=== PATIENT | male | born 1950 | race Caucasian/White ===

== ENCOUNTER → 2024-04-03 08:59 | Outpatient (REF) | payer MEDICARE, OTHER, SELFPAY ==
[2024-04-03 10:28] LABS: % Basophils 0.7 % (0-2); % Immature Granulocytes 0.6 % (0-0.5); % Lymphocytes 23.9 % (20.5-51.1); % Monocytes 8.1 % (1.7-9.3); % Neutrophils 62.7 % (42.2-75.2); Absolute Basophils 0.1 10^3/uL (0-0.2); Absolute Eosinophils 0.3 10^3/uL (0-0.7); Absolute Lymphocytes 1.7 10^3/uL (1.2-3.4); Absolute Monocytes 0.6 10^3/uL (0.1-0.6); Absolute Neutrophils 4.4 10^3/uL (1.4-6.5); Hematocrit 41.8 % (39.0-52.0); Hemoglobin 13.1 g/dL (13.0-18.0); Mean Corp Hgb Conc. 31.3 g/dL (33.0-37.0); Mean Corpuscular Volume 92.7 fL (80.0-94.0); Mean Platelet Volume 8.9 fL (7.4-10.4); Nucleated Red Blood Cells % 0 % (-); Platelet Count 304 10^3/uL (130-400); Red Blood Cell Count 4.51 10^6/uL (4.70-6.10); Red Cell Dist. Width 13.7 % (11.5-14.5)
[2024-04-03 11:02] LABS: ALT (SGPT) 27 U/L (0-50); AST (SGOT) 30 U/L (17-59); Albumin 4.3 g/dl (3.5-5.0); Alkaline Phosphatase 47 U/L (38-126); Blood Urea Nitrogen 30 mg/dl (9-20); Calcium 10.4 mg/dl (8.4-10.2); Carbon Dioxide 24 mmol/L (22-30); Chloride 113 mmol/L (98-107); Glucose 83 mg/dl (70-99); HDL Cholesterol 57 mg/dl; LDL Cholesterol, Calculated 140 mg/dl; Lithium 0.9 mmol/L (0.6-1.2); Potassium 4.5 mmol/L (3.5-5.1); Sodium 139 mmol/L (135-145); Total Bilirubin 0.9 mg/dl (0.2-1.3); Total Cholesterol 232 mg/dl (50-199); Total Protein 7.1 g/dl (6.3-8.2); Triglyceride 179 mg/dl (10-149); Very Low Density Lipoprotein 35 mg/dl (0-30); eGFR 48.55
[2024-04-03 11:18] LABS: Vitamin D, 25-OH*** 37.9 ng/mL (30-80)
[2024-04-03 11:33] LABS: PSA, Total - Screen 3.09 ng/ml (0.0-4.0); TSH Reflex To Free T4 1.64 uIU/ml (0.47-4.68)
[2024-04-03 11:51] LABS: Vitamin B12 332 pg/ml (239-931)
== END ==
LOC: HWLAB 08:59
PROVIDERS: ATTENDING PHYSICIAN Nurse Practitioner Adult Health; FAMILY PHYSICIAN Physician Assistant Medical; OTHER PHYSICIAN Internal Medicine Rheumatology; REFERRING PHYSICIAN Psychiatry & Neurology Psychiatry
DX: I10 Essential (primary) hypertension (principal); E78.2 Mixed hyperlipidemia; D47.2 Monoclonal gammopathy; E03.9 Hypothyroidism, unspecified; G70.00 Myasthenia gravis without (acute) exacerbation; E55.9 Vitamin D deficiency, unspecified; E51.9 Thiamine deficiency, unspecified; E53.8 Deficiency of other specified B group vitamins; Z12.5 Encounter for screening for malignant neoplasm of prostate; F31.62 Bipolar disorder, current episode mixed, moderate
CPT/HCPCS: 36415; 80053; 80061; 80178; 82306; 82607; 84425; 84443; 85025; G0103

== ENCOUNTER → 2024-06-29 09:57 | Outpatient (REF) | payer MEDICARE, OTHER, SELFPAY ==
[2024-06-29 13:10] LABS: Lithium 0.9 mmol/L (0.6-1.2)
== END ==
LOC: HWLAB 09:57
PROVIDERS: ATTENDING PHYSICIAN Psychiatry & Neurology Psychiatry; FAMILY PHYSICIAN Physician Assistant Medical
DX: F31.76 Bipolar disorder, in full remission, most recent episode depressed (principal)
CPT/HCPCS: 36415; 80178

== ENCOUNTER → 2024-07-28 10:21 | Outpatient (REF) | payer MEDICARE, OTHER, SELFPAY ==
[2024-07-28 13:31] LABS: Lithium 0.7 mmol/L (0.6-1.2)
== END ==
LOC: HWLAB 10:21
PROVIDERS: ATTENDING PHYSICIAN Psychiatry & Neurology Psychiatry; FAMILY PHYSICIAN Physician Assistant Medical
DX: F31.76 Bipolar disorder, in full remission, most recent episode depressed (principal)
CPT/HCPCS: 36415; 80178

== ENCOUNTER → 2024-08-26 12:29 | Outpatient (REF) | payer MEDICARE, OTHER, SELFPAY | LOC: HWRAD 12:29 | PROVIDERS: ATTENDING PHYSICIAN Internal Medicine Critical Care Medicine; FAMILY PHYSICIAN Physician Assistant Medical | DX: R91.1 Solitary pulmonary nodule (principal) | CPT/HCPCS: 71250 ==

== ENCOUNTER → 2024-09-18 13:39 | Outpatient (REF) | payer MEDICARE, OTHER, SELFPAY | LOC: MRI 3T 13:39 | PROVIDERS: ATTENDING PHYSICIAN Nurse Practitioner Adult Health; FAMILY PHYSICIAN Physician Assistant Medical | DX: R25.1 Tremor, unspecified (principal); R26.2 Difficulty in walking, not elsewhere classified; R41.0 Disorientation, unspecified; H54.7 Unspecified visual loss; H53.2 Diplopia; H53.9 Unspecified visual disturbance; R42 Dizziness and giddiness | CPT/HCPCS: 70544; 70549; 70551; A9585 ==

== ENCOUNTER → 2024-11-04 10:41 | Outpatient (REF) | payer MEDICARE, OTHER, SELFPAY | LOC: HWRAD 10:41 | PROVIDERS: ATTENDING PHYSICIAN Physician Assistant Medical; REFERRING PHYSICIAN Internal Medicine Rheumatology | DX: K11.8 Other diseases of salivary glands (principal) | CPT/HCPCS: 76536 ==

== ENCOUNTER → 2024-12-03 14:12 | Outpatient (REF) | payer MEDICARE, OTHER, SELFPAY ==
[2024-12-03 15:01] LABS: % Basophils 0.7 % (0-2); % Eosinophils 2.7 % (0-6); % Immature Granulocytes 0.6 % (0-0.5); % Lymphocytes 15.3 % (20.5-51.1); % Neutrophils 73.7 % (42.2-75.2); Absolute Basophils 0.1 10^3/uL (0-0.2); Absolute Eosinophils 0.2 10^3/uL (0-0.7); Absolute Monocytes 0.5 10^3/uL (0.1-0.6); Hematocrit 42.5 % (39.0-52.0); Hemoglobin 13.4 g/dL (13.0-18.0); Mean Corp Hgb Conc. 31.5 g/dL (33.0-37.0); Mean Corpuscular Hgb 28.9 pg (27.0-31.0); Mean Corpuscular Volume 91.8 fL (80.0-94.0); Nucleated Red Blood Cells % 0 % (-); Platelet Count 287 10^3/uL (130-400); Red Blood Cell Count 4.63 10^6/uL (4.70-6.10); Red Cell Dist. Width 13.7 % (11.5-14.5); White Blood Cell Count 6.8 10^3/uL (4.8-10.8)
[2024-12-03 15:15] LABS: ALT (SGPT) 31 U/L (0-50); AST (SGOT) 41 U/L (17-59); Albumin 4.4 g/dl (3.5-5.0); Alkaline Phosphatase 58 U/L (38-126); Blood Urea Nitrogen 30 mg/dl (9-20); Calcium 10.4 mg/dl (8.4-10.2); Carbon Dioxide 26 mmol/L (22-30); Chloride 110 mmol/L (98-107); Glucose 103 mg/dl (70-99); Potassium 4.8 mmol/L (3.5-5.1); Sodium 142 mmol/L (135-145); Total Bilirubin 0.5 mg/dl (0.2-1.3); eGFR 48.25
[2024-12-05 19:43] LABS: Beta-2-Microglobulin 3.7 mg/L (<=3.0)
== END ==
LOC: RAD 14:12
PROVIDERS: ATTENDING PHYSICIAN Nurse Practitioner Adult Health; FAMILY PHYSICIAN Physician Assistant Medical; REFERRING PHYSICIAN Internal Medicine Hematology & Oncology
DX: R06.02 Shortness of breath (principal); D47.2 Monoclonal gammopathy
CPT/HCPCS: 36415; 71046; 80053; 82232; 82784; 83521; 84155; 84165; 85025; 86334

== ENCOUNTER → 2025-01-08 14:31 | Outpatient (REF) | payer MEDICARE, OTHER, SELFPAY | LOC: HWRCS 14:31 | PROVIDERS: ATTENDING PHYSICIAN Internal Medicine Critical Care Medicine; FAMILY PHYSICIAN Physician Assistant Medical | DX: R06.02 Shortness of breath (principal) | CPT/HCPCS: 93306 ==

== ENCOUNTER → 2025-09-08 10:36 | Outpatient (REF) | payer MEDICARE, OTHER, SELFPAY ==
[2025-09-08 16:01] LABS: Lithium 0.8 mmol/L (0.6-1.2)
[2025-09-08 16:39] LABS: TSH 0.33 uIU/ml (0.47-4.68)
== END ==
LOC: HWLAB 10:36
PROVIDERS: ATTENDING PHYSICIAN Psychiatry & Neurology Psychiatry; FAMILY PHYSICIAN Physician Assistant Medical
DX: F31.76 Bipolar disorder, in full remission, most recent episode depressed (principal); E03.9 Hypothyroidism, unspecified
CPT/HCPCS: 36415; 80178; 84443

== ENCOUNTER → 2025-10-05 14:36 | Outpatient (REF) | payer MEDICARE, OTHER, SELFPAY | LOC: RAD 14:36 | PROVIDERS: ATTENDING PHYSICIAN Internal Medicine Critical Care Medicine; FAMILY PHYSICIAN Physician Assistant Medical | DX: R06.02 Shortness of breath (principal); J98.6 Disorders of diaphragm | CPT/HCPCS: 71046; 76000 ==